=== PATIENT | female | born 1975 | race Caucasian/White ===

== ENCOUNTER 2018-06-08 13:46 | Outpatient (CLI) | payer OTHER ==
--- NOTE | 2018-06-16 10:34 | MMO ---
BILATERAL MAMMOGRAMS: History: Screening mammography. Comparison: Multiple outside exams back to 03-14-13. FINDINGS: Scattered fibroglandular densities. No dominant mass or suspicious calcifications. Study was evaluate d with the assistance of computer aided detection. IMPRESSION: BIRADS category 1 - negative. Suggest routine follow up. POS: CIPRIANO
== END 2018-06-08 13:47 | disposition home or self-care (01) ==
LOC: SCSMAMMO 13:46
PROVIDERS: ATTEND Family Medicine
DX: Z12.31 Encounter for screening mammogram for malignant neoplasm of breast (principal)
CPT/HCPCS: 77067

== ENCOUNTER 2018-08-01 08:56 | Outpatient (CLI) | payer OTHER ==
--- NOTE | 2018-08-01 10:36 | RAD ---
RIGHT WRIST 3 VIEWS: Date: 08/01/18 HISTORY: Right wrist pain and swelling for 3 weeks without injury. FINDINGS: Degenerative and osteoarthrosis changes are noted of the wrist. There is an approximately 0.4 cm diam eter somewhat poorly marginated ossification focus noted on the volar aspect of the wrist overlying t he distal ulna, possibly an interarticular body or secondary ossification center. Minimal deformity o f the fifth metacarpal, evidence for an old fracture. IMPRESSION: No evidence for overt acute fracture. Arthrosis and degenerative changes. Old fracture of the distal fifth metacarpal. Somewhat poorly marginated focal area of bony density on the volar aspect of the wr ist overlying the distal ulna. This could possibly represent an interarticular body versus a secondar y ossification center or other calcific focus. Depending on concern, consideration for a follow-up CT scan or MRI is suggested in this regard. POS: JEEVAN
== END 2018-08-01 08:57 | disposition home or self-care (01) ==
LOC: SCSRAD 08:56
PROVIDERS: ATTEND Family Medicine
DX: M25.531 Pain in right wrist (principal); M19.031 Primary osteoarthritis, right wrist; R93.7 Abnormal findings on diagnostic imaging of other parts of musculoskeletal system

== ENCOUNTER 2018-08-22 14:35 | Outpatient (CLI) | payer OTHER ==
--- NOTE | 2018-08-22 17:20 | MRI ---
MRI RIGHT WRIST WITHOUT CONTRAST: 08/22/18 HISTORY: Pain. M25.521. COMPARISON: Radiographs 08/01/18. FINDINGS: The exam is severely limited due to motion artifact. BONES: There is no acute fracture. No malalignment. There does appear to be a possible erosion synovitis jose martin ng the volar aspect of the radial styloid with effusion within the prestyloid recess containing and o ssified body measuring 0.4 x 0.2 cm. Scapholunate orientation is normal. There are also erosions of the volar aspect of the capitate as we ll as of the triquetrum. TENDONS: There is subtle fluid surrounding the extensor carpi ulnaris tendon with no significant subluxation. MUSCLES: The muscle bulk is normal. IMPRESSION: Synovitis on the prestyloid recess which contains an ossific debris as seen on the recent radiographs . Could be the source of patient's pain. There are also erosions of the volar aspect of the capitate and of the triquetrum which with the corresponding synovitis can be seen with facet inflammatory arth ropathy such as rheumatoid. POS: CIPRIANO
== END 2018-08-22 14:36 | disposition home or self-care (01) ==
LOC: SCSMRI 14:35
PROVIDERS: ATTEND Orthopaedic Surgery
DX: M25.531 Pain in right wrist (principal); M65.4 Radial styloid tenosynovitis [de Quervain]

== ENCOUNTER 2018-10-02 12:56 | Outpatient (CLI) | payer OTHER ==
[2018-10-02 14:15] LABS: Hemoglobin 13.5 g/dL (12.0-16.0); Mean Corpuscular HGB CONC 36.3 g/dL (32.0-36.0); Mean Corpuscular Hemoglobin 31.6 pg (27.0-31.0); Mean Corpuscular Volume 87.1 fL (78.0-98.0); Mean Platelet Volume 5.9 fL (7.4-10.4); Platelet Count 261 thou/uL (130-400); RBC Distribution Width 12.5 % (11.5-14.5); Red Blood Cell (RBC) Count 4.27 mill/uL (4.20-5.40); White Blood Cell (WBC) Count 7.8 thou/uL (4.8-10.8)
--- NOTE | 2018-10-02 19:31 | EKG ---
Test Reason : Blood Pressure : / mmHG Vent. Rate : 118 BPM Atrial Rate : 118 BPM P-R Int : 124 ms QRS Dur : 080 ms QT Int : 338 ms P-R-T Axes : 069 059 027 degrees QTc Int : 473 ms Sinus tachycardia Low voltage QRS Borderline ECG No previous ECGs available Confirmed by LAEISHA SANTOYO, DR. Felton ([id number]) on 10/02/2018 7:30:52 PM Referred By: CHRISTINA Confirmed By:DR. Jose Francisco MORAES MD
== END 2018-10-02 12:57 | disposition home or self-care (01) ==
LOC: LABBT 12:56
PROVIDERS: ATTEND Orthopaedic Surgery Hand Surgery
DX: Z01.818 Encounter for other preprocedural examination (principal); M65.9 Synovitis and tenosynovitis, unspecified; G56.01 Carpal tunnel syndrome, right upper limb
CPT/HCPCS: 85027; 93005; 93010

== ENCOUNTER 2018-10-09 11:48 | Day surgery (SDC) | payer OTHER ==
[2018-10-02 13:27] VITALS: BMI 32.9
[2018-10-09] MEDS ORDERED: CEFAZOLIN 2 GM/50 ML BAG ONE (12:19)
[2018-10-09] MEDS ORDERED: EPINEPHrine 1 MG/ML AMP ONE (12:44)
[2018-10-09] MEDS ORDERED: Bupivacaine PF 0.5% 30 ML VIAL ONE (12:44)
[2018-10-09] MEDS ORDERED: Bacitracin Zinc Ointment 30 gm TUBE ONE (12:44)
[2018-10-09] MEDS ORDERED: Fentanyl 100 MCG/2 ML VIAL ONE (13:06)
[2018-10-09] MEDS ORDERED: Ondansetron PF 4 MG/2 ML Vial ONE (14:48)
[2018-10-09] MEDS ORDERED: PHENYLEPHRINE-NS 100 MCG/ML 10 ML SYRINGE ONE (14:48)
[2018-10-09] MEDS ORDERED: Lidocaine 1% PF 5 ML VIAL ONE (14:48)
[2018-10-09] MEDS ORDERED: Dexamethasone 20 MG/5 ML VIAL ONE (14:48)
[2018-10-09] MEDS ORDERED: PROPOFOL 200 MG/20 ML VIAL ONE (14:48)
[2018-10-09] MEDS ORDERED: Betamet Acet/Betamet Na Ph 30 MG/5 ML VIAL ONE (16:08)
[2018-10-09] MEDS ORDERED: Ketorolac Tromethamine 30 MG/ML VIAL ONE (17:07)
[2018-10-09] MEDS ORDERED: HYDROcodone/Acetaminophen 5/325 mg Tablet ONE (18:43)
--- NOTE | 2018-10-09 19:58 | RAD ---
RIGHT WRIST TWO VIEWS: HISTORY: Intraoperative films. Synovectomy of right wrist. FINDINGS: These films show probe placement on the volar side of the wrist. On one of these images, this is dir ectly at the level of the triangular fibrocartilage. Incidental note is made of what appears to be s ome deformity to the fifth metacarpal, probably related to an old injury. IMPRESSION: Intraoperative film, as discussed above. POS: EHSAN
--- NOTE | 2018-10-13 07:45 | OP ---
DATE OF PROCEDURE: 10/09/2018 PREOPERATIVE DIAGNOSES: 1. 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 2. Right volar wrist osteochondral loose body. 3. Right volar ulnar wrist ganglion. POSTOPERATIVE DIAGNOSES: 1. 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 2. Right volar wrist osteochondral loose body. 3. Right volar ulnar wrist ganglion. FINDINGS: 2 x 1.0 cm volar wrist ganglion emanating from the volar ulnocarpal joint with a 1 cm x 3.5 mm osteochondral defect causing some compression through the capsule and the ulnar nerve necessitating the following procedures. PROCEDURES PERFORMED: 1. Right ulnar nerve neuroplasty at the wrist. 2. Right wrist volar ganglion excision. 3. Right wrist arthrotomy with loose body extraction, ulnocarpal joint. 4. Right wrist arthroscopic synovectomy. 5. Right wrist carpel tunnel release, ulnar. 6. Application of Celestone. 7. C-arm supervision. ESTIMATED BLOOD LOSS: 20 mL. SPECIMEN SENT TO LAB: 1. Ganglion cavity, decompressed. 2. 1 cm x 3.5 mm osteochondral loose body. Radiographs after the procedure showed loose body was completely gone compared to preoperative radiographs. INDICATION: The patient with pain, intermittent swelling, numbness, and tingling of the small finger involving all the other digits with the small finger numbness being intermittent based on the swelling in the ulnocarpal wrist region and the index, long, and thumb being nearly complete. Positive EMG for carpal tunnel syndrome, but not for cubital tunnel syndrome, thus we doubt all the symptoms be coming from the wrist. DESCRIPTION OF PROCEDURE: After successful general endotracheal anesthesia, limb was prepped and draped. We then placed an Arthrex arm lloyd with a manager chinese mild retraction in excellent position. We did time-out appropriately and did outline the 3-4, 6U and 6R portal was then established, after inflating the wrist with 7 mL of 0.5% Marcaine with epinephrine. We opened the 6R and 3-4 portal that was established. On panoramic view of wrist, we found marked synovitis, especially in the center of the wrist before we entered the ulnocarpal joint and some synovitis of the ulnocarpal region in the ulna aspect of the lunate. For this reason, we did arthroscopic chondroplasty of this area along with some fraying at the scapholunate joint without a true tear. We then saw a posterior capsule tear, but we were unable to probe in or other instrumentation to find the osteochondral loose body that we felt it must be in this region. C-arm radiography was used to confirm it was in this region. We then inspected TFCC, saw some fraying of the joint capsule emanating from the appropriate source. Next, we then realized that we had to make a volar approach, so we outlined the volar because it was here where we had the center of the pain on one side radially and the mass felt by the patient ulnarly. Tourniquet inflated after the arthroscope, we then made a zigzag incision, extended over the flexor carpi ulnaris tendon, brought the tendon slightly ulnarly and then radially found neurovascular bundle. We then did a formal neuroplasty of ulnar nerve up to level of 5 to 6 mm past the pisiform, protected all branches enough that we could retract without causing undue pressure. We then visualized as soon as we freed up the ulnar nerve deep to a clear plastic sac system with a ganglion that was 1.2 cm tall and 1 cm wide. We followed it back to the stalk, lifted off the palmar radiocarpal 3 mm rim as we lifted it off the sac, deflated, and we sent this sac as specimen. We then began to use radiographs for a search and destroy mission in order to find osteochondral loose body without causing ulnar nerve or artery damage. We did so, found that the actual hole made in the capsule was just distal to the lesion and we performed some radiographs and made a small longitudinal incision in line with the sheath, and we successfully removed the osteochondral loose body through the defect in the volar capsule. We did not close this. We then left the tourniquet out. We then made our approach for the carpal tunnel. Outlined incision between the Ramos cardinal line and 1 cm distal to the palmar flexion crease and lateral to the ring finger, and carried this through skin and subcutaneous tissue with tourniquet inflated through which we reached the transcarpal ligament. We then dissected distally and reached the distal 5 cm of transcarpal ligament and turned to the remainder and was able to visualize transcarpal ligament. We then protected any nerve branches, released it from the midportion distally and midportion proximally until there was no evidence of compression. Median nerve had some early stippling formation. We reminded to release the tourniquet at this point, we did so and here we had no bleeder from the ulnar artery branch, which was right next to the dissected ulnar nerve neuroplasty at the wrist. We then finished the hemostasis and placed 2.5 mL Celestone over the median nerve of the wrist as well as the ulnar nerve at the wrist (medial nerve of the carpel canal), closed transverse carpal ligament incision and excellent hemostasis with interrupted 4-0 Nylon and then closed the ulnar carpal incision with excellent circumstances with a running ulnar 4-0 Monocryl, followed by a 4-0 Prolene. We placed 4-0 nylon simple stitch, we placed simple stitch nylon in each of 2 portals and then placed bulky dressing with palmar splint, injected with a total of 30 mL of 0.5% Marcaine over each incision and the patient left the operating room without evidence of anesthetic or operative complications. Job ID: [id number]
== END 2018-10-09 19:17 | disposition home or self-care (01) ==
LOC: SDC 11:48
PROVIDERS: ATTEND Orthopaedic Surgery Hand Surgery
PROC: 0LB50ZZ Excision of Right Lower Arm and Wrist Tendon, Open Approach (ICD-10-PCS; principal; 2018-10-09)
PROC: 0PBM0ZZ Excision of Right Carpal, Open Approach (ICD-10-PCS; principal; 2018-10-09)
PROC: 01N50ZZ Release Median Nerve, Open Approach (ICD-10-PCS; principal; 2018-10-09)
PROC: 0RBN4ZZ Excision of Right Wrist Joint, Percutaneous Endoscopic Approach (ICD-10-PCS; principal; 2018-10-09)
DX: M65.88 Other synovitis and tenosynovitis, other site (principal); G56.01 Carpal tunnel syndrome, right upper limb; D16.9 Benign neoplasm of bone and articular cartilage, unspecified; M67.431 Ganglion, right wrist; M10.9 Gout, unspecified; Z87.891 Personal history of nicotine dependence; Z79.899 Other long term (current) drug therapy
CPT/HCPCS: 76001; 88304; 88305; 88311; 96374; J0131; J0171; J0702; J1100; J1885; J2001; J2405; J2704; J3010; S0020

== ENCOUNTER 2019-06-11 08:26 | Outpatient (CLI) | payer OTHER ==
--- NOTE | 2019-06-11 09:01 | MMO ---
Bilateral MAMMO Bilat Screen [facility]. CLINICAL HISTORY: Patient is 44 years old and is seen for screening. VIEWS: The views performed were: . FILMS COMPARED: The present examination has been compared to prior imaging studies performed at [facility] on 06/08/2018, and at [facility]) on 03/14/2013, 10/10/2014 and 01/06/2017. MAMMOGRAM FINDINGS: There are scattered fibroglandular densities. There are no suspicious masses, suspicious calcifications, or new areas of architectural distortion. IMPRESSION: THERE IS NO MAMMOGRAPHIC EVIDENCE OF MALIGNANCY. A ROUTINE FOLLOW-UP MAMMOGRAM IN 1 YEAR IS RECOMMENDED. THE RESULTS OF THIS EXAM WERE SENT TO THE PATIENT. ACR BI-RADS Category 1 - Negative MAMMOGRAPHY NOTE: 1. A negative mammogram report should not delay a biopsy if a dominant of clinically suspicious mass is present. 2. Approximately 10% to 15% of breast cancers are not detected by mammography. 3. Adenosis and dense breasts may obscure an underlying neoplasm. Reported by: AMADA SPRINGER MD Electonically Signed: [id number]
== END 2019-06-11 08:27 | disposition home or self-care (01) ==
LOC: BICMAMMO 08:26
PROVIDERS: ATTEND Family Medicine
DX: Z12.31 Encounter for screening mammogram for malignant neoplasm of breast (principal)
CPT/HCPCS: 77063; 77067

== ENCOUNTER 2021-01-16 08:40 | Outpatient (CLI) | payer OTHER | END 2021-01-16 08:41 | disposition home or self-care (01) | LOC: BICMAMMO 08:40 | PROVIDERS: ATTEND Family Medicine | DX: Z12.31 Encounter for screening mammogram for malignant neoplasm of breast (principal); Z80.3 Family history of malignant neoplasm of breast | CPT/HCPCS: 77063; 77067 ==

== ENCOUNTER 2021-03-02 09:32 | Outpatient (CLI) | payer OTHER | END 2021-03-02 09:33 | disposition home or self-care (01) | LOC: BICMAMMO 09:32 | PROVIDERS: ATTEND Physician Assistant | DX: N63.10 Unspecified lump in the right breast, unspecified quadrant (principal) | CPT/HCPCS: G0279 ==

== ENCOUNTER 2022-07-23 08:24 | Outpatient (CLI) | payer OTHER | END 2022-07-23 08:25 | disposition home or self-care (01) | LOC: BICMAMMO 08:24 | PROVIDERS: ATTEND Family Medicine | DX: Z12.31 Encounter for screening mammogram for malignant neoplasm of breast (principal); Z80.3 Family history of malignant neoplasm of breast | CPT/HCPCS: 77063; 77067 ==

== ENCOUNTER 2023-04-19 12:29 | Outpatient (CLI) | payer OTHER | END 2023-04-19 12:30 | disposition home or self-care (01) | LOC: SCSRAD 12:29 | PROVIDERS: ATTEND Nurse Practitioner Family | DX: R10.9 Unspecified abdominal pain (principal) | CPT/HCPCS: 74018 ==

== ENCOUNTER 2024-09-27 10:56 | Outpatient (CLI) | payer OTHER | END 2024-09-27 10:57 | disposition home or self-care (01) | LOC: SCSRAD 10:56 | DX: R06.00 Dyspnea, unspecified (principal) | CPT/HCPCS: 71046 ==

== ENCOUNTER 2025-06-21 11:01 | Emergency (ER) | payer OTHER ==
[2025-06-21] MEDS ORDERED: Ondansetron PF 4 MG/2 ML Vial ONE (11:53)
[2025-06-21 12:01] LABS: ALT (SGPT) 18 U/L (Less than 34); AST (SGOT) 26 U/L (11-34); Albumin 4.0 g/dL (3.1-4.5); Alkaline Phosphatase 63 U/L (40-110); Anion Gap 15 mmol/L (10-20); BUN (Urea Nitrogen) 14 mg/dL (9.8-20.1); Bilirubin, Total 0.6 mg/dL (0.3-1.2); Calc. Creatinine Clearance 0 mL/min (70-130); Calcium 8.7 mg/dL (7.8-10.44); Carbon Dioxide 25 mmol/L (22-29); Chloride 102 mmol/L (98-107); Globulin 3.1 g/dL (2.4-3.5); Glucose 91 mg/dL (70-105); Lipase 44 U/L (8-78); Potassium 3.7 mmol/L (3.5-5.1); Sodium 138 mmol/L (136-145)
[2025-06-21 12:13] LABS: #Basophils 0.03 10x3/uL (0.0-0.2); #Eosinophils 0.26 10x3/uL (0.0-0.7); #Monocytes 0.41 10x3/uL (0.11-0.59); #Neutrophils 3.82 10x3/uL (1.40-6.50); %Basophils 0.5 % (0.0-1.0); %Eosinophils 4.1 % (0.0-10.0); %Lymphocytes 28.8 % (21.0-51.0); %Monocytes 6.4 % (0.0-10.0); %Neutrophils 59.9 % (42.0-75.0); Hematocrit 43.3 % (36.0-47.0); Hemoglobin 15.1 g/dL (12.0-16.0); Mean Corpuscular Hemoglobin 30.6 pg (27.0-31.0); Mean Corpuscular Volume 87.7 fL (78.0-98.0); Platelet Count 61 10x3/uL (130-400); Red Blood Cell (RBC) Count 4.94 mill/uL (4.20-5.40); White Blood Cell (WBC) Count 6.38 10x3/uL (4.8-10.8)
[2025-06-21] MEDS ORDERED: Iopamidol-370 76% 500 ML MDV (1 ML CHARGE) ONE (12:32)
[2025-06-21 13:26] LABS: Anisocytosis SLIGHT = 6-15 cells HPF (0-5); Burr Cells SLIGHT = 2-5 cells HPF (0-1); Ovalocytes SLIGHT = 2-5 cells HPF (0-1); Platelet Adequacy Comment Platelets Decreased
[2025-06-21 14:16] LABS: Pregnancy Test - Urine (BHCG) Negative (Negative); Pregu Control Background? CLEAR/WHITE (CLR/WHITE); Pregu Control Bar Appear? YES (CONTROL BAR)
[2025-06-21 14:17] LABS: Bacteria/HPF None Seen HPF (None Seen); CAUTI Indications for Culture Pelvic or flank pain; Glucose, Urine (Dipstick) Normal (Negative); Leukocyte Negative Leu/uL (Negative); Protein, Urine (Dipstick) Negative (Neg-Trace); RBC/HPF None Seen HPF (0-3); Specific Gravity, Urine 1.011 (1.002-1.036); WBC/HPF None Seen HPF (0-3)
[2025-06-21 14:18] LABS: Urine Culture Reflex No No
[2025-06-21] MEDS ORDERED: Acetaminophen 500 MG TAB ONE (15:01)
== END 2025-06-21 17:20 | disposition home or self-care (01) ==
LOC: ERS 11:01
DX: K52.9 Noninfective gastroenteritis and colitis, unspecified (principal); R51.9 Headache, unspecified; I10 Essential (primary) hypertension; F17.210 Nicotine dependence, cigarettes, uncomplicated
CPT/HCPCS: 71045; 74177; 80053; 81001; 81025; 83605; 83690; 84484; 85025; 93005; 96361; 96374; J2405; Q9967

== ENCOUNTER 2025-06-26 12:00 | Outpatient (CLI) | payer OTHER | END 2025-06-26 12:01 | disposition home or self-care (01) | LOC: SCSRAD 12:00 | PROVIDERS: ATTEND Family Medicine | DX: R10.9 Unspecified abdominal pain (principal); M41.9 Scoliosis, unspecified | CPT/HCPCS: 74019 ==

== ENCOUNTER 2025-10-10 09:16 | Outpatient (CLI) | payer OTHER | END 2025-10-10 09:17 | disposition home or self-care (01) | LOC: SCSRAD 09:16 | PROVIDERS: ATTEND Family Medicine | DX: J45.41 Moderate persistent asthma with (acute) exacerbation (principal); J01.90 Acute sinusitis, unspecified | CPT/HCPCS: 71046 ==

== ENCOUNTER 2025-10-19 22:35 | Emergency (ER) | payer OTHER ==
[2025-10-19 23:45] LABS: #Basophils 0.04 10x3/uL (0.0-0.2); #Eosinophils 0.22 10x3/uL (0.0-0.7); #Monocytes 0.53 10x3/uL (0.11-0.59); #Neutrophils 5.81 10x3/uL (1.40-6.50); %Basophils 0.4 % (0.0-1.0); %Eosinophils 2.4 % (0.0-10.0); %Lymphocytes 29.0 % (21.0-51.0); %Monocytes 5.7 % (0.0-10.0); %Neutrophils 62.0 % (42.0-75.0); Hematocrit 43.5 % (36.0-47.0); Hemoglobin 14.5 g/dL (12.0-16.0); Mean Corpuscular Hemoglobin 29.8 pg (27.0-31.0); Mean Corpuscular Volume 89.5 fL (78.0-98.0); Platelet Count 189 10x3/uL (130-400); Red Blood Cell (RBC) Count 4.86 mill/uL (4.20-5.40); White Blood Cell (WBC) Count 9.36 10x3/uL (4.8-10.8)
[2025-10-20 00:01] LABS: ALT (SGPT) 21 U/L (Less than 34); AST (SGOT) 26 U/L (11-34); Albumin 3.9 g/dL (3.1-4.5); Alkaline Phosphatase 63 U/L (40-110); Anion Gap 15 mmol/L (10-20); BUN (Urea Nitrogen) 9 mg/dL (9.8-20.1); Bilirubin, Total 0.1 mg/dL (0.3-1.2); Calc. Creatinine Clearance 0 mL/min (70-130); Calcium 9.3 mg/dL (7.8-10.44); Carbon Dioxide 30 mmol/L (22-29); Chloride 101 mmol/L (98-107); Globulin 3.2 g/dL (2.4-3.5); Glucose 167 mg/dL (70-105); Lipase 54 U/L (8-78); Potassium 3.7 mmol/L (3.5-5.1); Sodium 142 mmol/L (136-145)
== END 2025-10-20 02:50 | disposition home or self-care (01) ==
LOC: ERS 22:35
DX: R06.2 Wheezing (principal); I10 Essential (primary) hypertension; F17.210 Nicotine dependence, cigarettes, uncomplicated
CPT/HCPCS: 71045; 80053; 83690; 84484; 85025; 93005